=== PATIENT | female | born 1970 | race Caucasian/White ===

== ENCOUNTER → 2018-08-12 | Outpatient (CLI) | payer OTHER ==
[~2018-08-12] MED LIST: CELEXA20 MG PO; PEPCID 20MG TAB20 MG PO; PHENERGAN 25 TA25 MG PO; PHENERGAN25 MG RC; ULTRAM 50MG TAB50 MG PO; XANAX0.5 MG PO
== END ==
LOC: MHCPAIN 09:07
DX: G89.29 Other chronic pain (principal); M47.817 Spondylosis without myelopathy or radiculopathy, lumbosacral region; M54.16 Radiculopathy, lumbar region; M53.3 Sacrococcygeal disorders, not elsewhere classified
CPT/HCPCS: G0463

== ENCOUNTER → 2018-09-02 | Outpatient (CLI) | payer OTHER | LOC: MHCPAIN 15:18 | DX: M47.817 Spondylosis without myelopathy or radiculopathy, lumbosacral region (principal); M54.16 Radiculopathy, lumbar region | CPT/HCPCS: J1100; Q9967 ==